=== PATIENT | male | born 1985 | race Caucasian/White ===

== ENCOUNTER 2016-07-17 14:10 | Inpatient (IN) | payer OTHER ==
[~2016-07-17] VITALS: Ht 167.6 cm; Wt 90.7 kg
[~2016-07-17 14:10] MED LIST: PRILOSEC 20MG C20 MG PO
--- NOTE | 2016-07-17 14:22 | NUR ---
TRIAGE; PT TO ED WITH FATHER. HAS BEEN STATING HE WANTS TO KILL HIMSELF. FATHER STATES PT HAS MENTIONED IT EVERY ONCE IN AWHILE. HAS BEEN GOING THROUGH ALOT LATELY AND UNDER STRESS. IS HAVING ISSUES WITH AT HOME AND WAS ARRESTED AND IN COURT YESTERDAY AND STARTED TO MENTION IT TO HIS FATHER. FEELS ANXIOUS AND DEPRESSED. DENIES ANY RECENT ETOH USE. DENIES ANY DRUG USE.
--- NOTE | 2016-07-17 14:37 | NUR ---
(1) one belongings bag locked in closet and (1) one valuables bag given to Pod 2 RN
--- NOTE | 2016-07-17 14:40 | NUR ---
PT BROUGHT IN FOR +SI COMMENT MADE TO FATHER YESTERDAY. PT REPORTS HE WAS ARRESTED THIS PAST WEEKEND AND MOVED. PT DENIES ETOH USE. PT ADMITS TO MARIJUANA USE. PT DENIES HI.
--- NOTE | 2016-07-17 14:45 | NUR ---
SURAJ WATTS AT BEDSIDE
--- NOTE | 2016-07-17 14:46 | ED PSYCHIATRIC COMPLAINT ---
History of Present Illness General Chief Complaint: Psychiatric Related Complaint Stated Complaint: +SI Source: patient Exam Limitations: no limitations Vital Signs & Intake/Output Vital Signs & Intake/Output Vital Signs Date Time Temp Pulse Resp B/P Pulse O2 O2 Flow FiO2 Ox Delivery Rate 07/17 1753 96.0 85 16 115/72 99 Room Air 07/17 1633 97.1 92 20 126/84 95 Room Air 07/17 1541 Room Air 07/17 1421 97.8 108 16 124/89 99 Room Air Allergies Coded Allergies: NO KNOWN ALLERGIES (06/05/15) Triage Note: TRIAGE; PT TO ED WITH FATHER. HAS BEEN STATING HE WANTS TO KILL HIMSELF. FATHER STATES PT HAS MENTIONED IT EVERY ONCE IN AWHILE. HAS BEEN GOING THROUGH ALOT LATELY AND UNDER STRESS. IS HAVING ISSUES WITH AT HOME AND WAS ARRESTED AND IN COURT YESTERDAY AND STARTED TO MENTION IT TO HIS FATHER. FEELS ANXIOUS AND DEPRESSED. DENIES ANY RECENT ETOH USE. DENIES ANY DRUG USE. Triage Nurses Notes Reviewed? yes Onset: Abrupt Duration: day(s):, constant, continues in ED Timing: recent history HPI: 30-year-old male comes into emergency room for further evaluation after making suicidal comments to father yesterday and thinking suicidal comments. He denies any alcohol use. He admits to smoking marijuana but denies any other illicit drug use. Patient reports she was living with his girlfriend and his 3 kids with and without movement with his other girlfriend. He reports that this causes some issues for him. He reports that he was arrested over the weekend. He denies owning any weapons. Patient has been feeling depressed. Denies any pain. Denies any other associated symptoms. (NATE BARRIGA) Reconcile Medications Pantoprazole Sodium 40 MG TABLET.DR 1 TAB PO DAILY GI (Reported) (TIFFANIE LOW,ARA) Past History Travel History Traveled to [place] past 21 day No Medical History Any Pertinent Medical History? see below for history Neurological: NONE EENT: NONE Cardiovascular: NONE Respiratory: NONE Gastrointestinal: GERD Hepatic: NONE Renal: nephrolithiasis, has had renal stones removed and a stent placed in the past which was removed later in [place] Musculoskeletal: NONE Psychiatric: opioid dependence, substance abuse Endocrine: NONE Blood Disorders: NONE Surgical History Surgical History: non-contributory Psychosocial History Who do you live with Other (see notes) What is your primary language Turkish Tobacco Use: Never used Family History Hx Contributory? No (NATE BARRIGA) Review of Systems Review of Systems Constitutional: Reports: no symptoms. EENTM: Reports: no symptoms. Respiratory: Reports: no symptoms. Cardiovascular: Reports: no symptoms. GI: Reports: no symptoms. Genitourinary: Reports: no symptoms. Musculoskeletal: Reports: no symptoms. Skin: Reports: no symptoms. Neurological/Psychological: Reports: see HPI. Hematologic/Endocrine: Reports: no symptoms. Immunologic/Allergic: Reports: no symptoms. All Other Systems: Reviewed and Negative (NATE BARRIGA) Physical Exam Physical Exam General Appearance: well developed/nourished, mild distress Head: atraumatic Eyes: Bilateral: normal appearance, EOMI. Ears, Nose, Throat: normal ENT inspection, hearing grossly normal Neck: normal inspection Respiratory: no respiratory distress Cardiovascular: regular rate/rhythm Extremities: normal range of motion Neurological/Psychiatric: awake, alert Appearance/Memory/Insight: appropriate appearance Behavoir/Eye Contact/Speech: cooperative Thoughts/Hallucinations: normal thought pattern Skin: intact, normal color, warm/dry SAD PERSONS SAD PERSONS Response Value Male Sex? yes 1 Depression/Hopelessness? yes 2 Single//? yes 1 Social Support? has support 0 Total 4 SAD PERSONS Done? yes (NATE BARRIGA) Progress Differential Diagnosis: dementia, drug intoxication, drug overdose, drug withdrawal, electrolyte abnormality, encephalitis, hypoglycemia, hypothyroidism, IC hem/mass/tumor, meningitis, depression, anxiety, bipolar Plan of Care: Orders Procedure Date/time Status Regular Diet 07/18 B Active Lab Add-on Test 07/17 1656 Active Patient Data - inpatient psych 07/17 1655 Active Admit to inpatient psych 07/17 1655 Active Continuous Observation Monitor 07/17 1528 Active ED CRISIS PSYCH CONSULT 07/17 1459 Active Intake & Output 07/17 1451 Active URINE DRUGS OF ABUSE 07/17 1446 Complete ETHANOL 07/17 1446 Complete COMPREHENSIVE METABOLIC PANEL 07/17 1446 Complete CBC WITHOUT DIFFERENTIAL 07/17 1446 Complete Vital Signs 07/17 UNK Active Nursing Misc 07/17 UNK Active Alternative Nursing Therapy 07/17 UNK Active Activity/Ambulation 07/17 UNK Active Current Medications Sig/Des Start time Last Medication Dose Stop Time Status Admin Omeprazole 40 MG DAILY AC 07/18 0700 AC (Prilosec) Acetaminophen 650 MG Q6P PRN 07/17 1699 AC (Tylenol) Al Hydroxide/Mg 30 ML Q4-6 PRN PRN 07/17 170 AC Hydroxide (Maalox Plus) Gabapentin 300 MG Q6P PRN 07/17 170 AC (Neurontin) Magnesium Hydroxide 30 ML AT BEDTIME PRN 07/17 1699 AC (Milk Of Magnesia) Trazodone HCl 50 MG AT BEDTIME NEED.. 07/17 1699 AC (Desyrel) Laboratory Tests 07/17/16 1515: Anion Gap 9, Estimated GFR > 60, BUN/Creatinine Ratio 11.3, Glucose 125 H, Calcium 10.3 H, Total Bilirubin 0.5, AST 39, ALT 68, Alkaline Phosphatase 72, Total Protein 6.9, Albumin 4.2, Globulin 2.7, Albumin/Globulin Ratio 1.6, CBC w Diff NO MAN DIFF REQ, RBC 5.88, MCV 88.6, MCH 30.3, RDW 13.2, MPV 9.1, Gran % 71.5, Lymphocytes % 21.0, Monocytes % 5.9, Eosinophils % 1.1, Basophils % 0.5, Absolute Granulocytes 8.4 H, Absolute Lymphocytes 2.5, Absolute Monocytes 0.7 H, Absolute Eosinophils 0.1, Absolute Basophils 0.1, PUBS MCHC 34.2, Serum Alcohol < 10.0 07/17/16 1455: Urine Opiates Screen < 100.00, Methadone Screen < 40, Barbiturate Screen < 60, Ur Phencyclidine Scrn < 6.00, Amphetamines Screen < 100, U Benzodiazepines Scrn < 85, Urine Cocaine Screen < 50, Urine Cannabis Screen > 80.00 H Departure Departure Disposition: STILL A PATIENT Condition: Stable Clinical Impression Primary Impression: Major depressive disorder, recurrent, unspecified Referrals: PATIENT HAS NO PRIMARY CARE DR (PCP/Family) Departure Forms: Customer Survey General Discharge Information Psych Admission Note Psychiatric Admission: I have seen and evaluated ALICIA SAMPSON. I have also reviewed all the pertinent lab results and diagnostic results. ALICIA SAMPSON will be admitted to our inpatient Psychiatric unit for treatment and care. (STEFANIE PA,NATE) PA/POWER PLANT ENGINEER Co-Sign Statement Statement: ED Attending supervision documentation- x I saw and evaluated the patient. I have also reviewed all the pertinent lab results and diagnostic results. I agree with the findings and the plan of care as documented in the PA's/POWER PLANT ENGINEER's documentation. [] I have reviewed the ED Record and agree with the PA's/POWER PLANT ENGINEER's documentation. [] Additions or exceptions (if any) to the PAs/POWER PLANT ENGINEER's note and plan are summarized below: [] (TIFFANIE LOW,ARA)
--- NOTE | 2016-07-17 15:19 | NUR ---
LABS SENT (BLUE,SST,LAV,[facility])
--- NOTE | 2016-07-17 15:28 | NUR ---
URINE TRIO SENT TO LAB
[2016-07-17 15:48] LABS: ABSOLUTE BASOPHIL COUNT 0.1 /CUMM (0.0-0.2); ABSOLUTE EOSINOPHIL COUNT 0.1 /CUMM (0.0-0.7); ABSOLUTE GRANULOCYTE CT 8.4 /CUMM (1.4-6.5); ABSOLUTE LYMPH COUNT 2.5 /CUMM (1.2-3.4); ABSOLUTE MONOCYTE COUNT 0.7 /CUMM (0.10-0.60); BASOPHIL % 0.5 % (0.0-2.0); EOSINOPHIL % 1.1 % (0-5); GRANULOCYTE % 71.5 % (42.2-75.2); HEMATOCRIT 52.1 % (42-52); MEAN CORPUSCULAR HGB 30.3 PG (27.0-31.0); MEAN CORPUSCULAR HGB CONC 34.2 G/DL (33.0-37.0); MEAN CORPUSCULAR VOLUME 88.6 FL (80.0-94.0); MEAN PLATELET VOLUME 9.1 FL (7.4-10.4); PLATELET COUNT 207 /CUMM (130-400); RBC DISTRIBUTION WIDTH 13.2 % (11.5-14.5); RED BLOOD CELL CT 5.88 /CUMM (4.70-6.10); WHITE BLOOD CELL COUNT 11.7 /CUMM (4.8-10.8)
--- NOTE | 2016-07-17 16:38 | NUR ---
PT MEETING WITH CRISIS IN CONSULTATION ROOM
--- NOTE | 2016-07-17 16:54 | NUR ---
PT MEDICATED WITH ATIVAN 1MG PO FOR ANXIETY. CRISIS AT BEDSIDE
--- NOTE | 2016-07-17 17:31 | ED PSYCH CRISIS CONSULTATION ---
Crisis Consult Basic Assessment Date of Consult: 07/17/16 Responsible Person/Accompanied By: self/father Insurance Authorization: Insurance #1: Insurance name: AVERY DILLON Phone number: Policy number: [id number] Group number: Authorization number: ED Provider: Patient's ED Provider: NATE BARRIGA Primary Care Physician: Patient's PCP: PATIENT HAS NO PRIMARY CARE DR PCP's Phone Number: Current Psychiatrist: none Chief Complaint: Psychiatric Related Complaint Patient's Quote: i'm having a really long week. i don't care anymore. Present Illness: Pt is a 30 yo male presenting to [place] ED this afternoon with reports of suicidal ideation. Pt is accompanied by his father who reports that pt has made suicidal statements past two days since arraignment in court yesterday. Pt released yesterday on a $10,000 pierre for threats made to kill his girl friend ( mother of his children). Pt reports they have had conflicts recently due to his sobriety and his report that he his trying to keep drug use out of their home. he reports concern that they're children are being exposed to drug use and drugs being left around the house. He reports recently notifying DCF and they currently have a DCF Worker. Pt had a [facility] admission in May 2015 due to depression and opiate dependence. he followed up with [facility] but discharged in June 2015 due to relapse. he reports involvement with [facility] and was able to discontinue off methadone 2 months ago. Pt has previously been prescribed wellbutrin, gabapentin and trazadone but on no current medications. He reports only using cannabis (daily) which he reports helps decrease his anxiety. He denies alcohol use. Pt reports SI with no plan stating "Maybe i'm suicidal...i don't care anymore". he reports not sleeping with no appetite. Increased anxiety and panic attacks. he reports his "heart hurts'. Pt presents as lethargic though generally agreeable and cooperative. He is oriented X3. If recommended pt would be a voluntary admission. Patient's Address: [address] [place] [address] Other Phone Number: Who Do You Live With? Other (see notes) (3 children and children mother) Family/Informants Interviewed: Pt mother yanni marx provided collateral . she reports pt has been stating "I'm going to kill myself" also threatened to kill gf on saturday. She reports grave concern about his safety. Allergies - Coded Allergies: NO KNOWN ALLERGIES (06/05/15) Current Medications - Scheduled Medications Omeprazole (Prilosec) 20 MG CAP 1 CAP PO DAILY GI (Reported) Entered as Reported by RICKY MATHEW on 06/06/15 1055 Laboratory Results: Laboratory Tests 07/17/16 1515: Anion Gap 9, Estimated GFR > 60, BUN/Creatinine Ratio 11.3, Glucose 125 H, Calcium 10.3 H, Total Bilirubin 0.5, AST 39, ALT 68, Alkaline Phosphatase 72, Total Protein 6.9, Albumin 4.2, Globulin 2.7, Albumin/Globulin Ratio 1.6, CBC w Diff NO MAN DIFF REQ, RBC 5.88, MCV 88.6, MCH 30.3, RDW 13.2, MPV 9.1, Gran % 71.5, Lymphocytes % 21.0, Monocytes % 5.9, Eosinophils % 1.1, Basophils % 0.5, Absolute Granulocytes 8.4 H, Absolute Lymphocytes 2.5, Absolute Monocytes 0.7 H, Absolute Eosinophils 0.1, Absolute Basophils 0.1, PUBS MCHC 34.2, Serum Alcohol < 10.0 07/17/16 1455: Urine Opiates Screen < 100.00, Methadone Screen < 40, Barbiturate Screen < 60, Ur Phencyclidine Scrn < 6.00, Amphetamines Screen < 100, U Benzodiazepines Scrn < 85, Urine Cocaine Screen < 50, Urine Cannabis Screen > 80.00 H Past History Past Medical History Neurological: NONE EENT: NONE Cardiovascular: NONE Respiratory: NONE Gastrointestinal: GERD Hepatic: NONE Renal: nephrolithiasis, has had renal stones removed and a stent placed in the past which was removed later in [place] Musculoskeletal: NONE Psychiatric: opioid dependence, substance abuse Endocrine: NONE Blood Disorders: NONE Past Surgical History Surgical History: non-contributory Psychosocial History Strengths/Capabilities: 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 Physical Limitations (Interventions): none known Psychiatric Treatment History Psych Treatment Psychiatric Treatment Yes Inpatient Treatment Yes Outpatient Treatment Yes Location of Treatment [facility] and [facility] Reason for Treatment opiate dependence depression Dates of Treatment May -june 2015 Response to Treatment detox of opiates. no recent use. Diagnosis by History: opiate dependence depression Substance Use/Abuse History Drug Use/Abuse 1 Substances Used/Abused Yes Substance Used/Abused Non-Prescribed Opiates Last Used 2016 How much used/taken percocet 30s Drug Use/Abuse 2 Substances Used/Abused Yes Substance Used/Abused Marijuana Last Used today How often daily Substance Abuse Treatment Substance Abuse Treatment Past Substance Abuse TX Yes Inpatient Treatment Yes Outpatient Treatment Yes Location of Treatment [facility]; [facility] and [facility] Reason for Treatment opiate dependence Dates of Treatment 2015 Response to Treatment detox of opiates and stopped methadone 2 months ago. Comments: pt reports being opiate free since stopping methadone tx 2 months ago. Pt reports daily cannabis use helps with anxiety. Current Mental Status Mental Status Orientation: Person, Place, Situation Affect: Depressed Speech: WNL Neuro-vegetative: Anhedonia, Appetite Decreased, Energy Decreased, Helpless, Loss of Interest, Sleep Disturbance Appearance Appearance- Dress/Hygiene: hospital scrubs, appears lethargic; generally cooperative Behaviors Thought Process: WNL Thought Content: WNL Memory: WNL Insight: Fair SI/HI Risk Assessment Past Suicidal Ideation/Attempts Yes Current Suicidal Ideation/Att Yes Past Homicidal Ideation/Att: Yes Current Homicidal Ideation/Attempts No Degree of Intent: Thoughts/No Intent Danger To: Others, Self Gravely Disabled: Poor Impulse Control, Poor Judgment Risk Factors: high anxiety/distress, SA/MH hospitalized, substance abuse, poor impulse control, lack of outcome concern, male Lethality Ratin PTSD Checklist PTSD Done? patient declined ED Management Sitter: Yes Restraints: No DSM5/PS Stressors/Medical Prob Diagnosis' (DSM 5, Stressors, Medical): Unspecified depressive D/O opiod Use disorder in early remission conflict with primary support group Current GAF: 25 Comments: pt reports recent crisis/conflict due to his concern that his gf (mother of his children) is allowing drug and alcohol use to take place in the home and in front of their children. Departure Disposition Psych Medical Clearance Date: 07/17/16 Medically Cleared at: 1600 Time Started: 1605 Time Ended: 1645 Psychiatrist Consulted: Adam Coleman MD Date Disposition Established: 07/17/16 Time Disposition Established: 165 Plan for Disposition - Modality: Inpatient Psychiatry Facility: [facility] Rationale for Disposition: Pt reports SI with no plan. Pt also recent threat to kill GF. Pt arrested over weekend for threatening gf. Pt reports not caring anymore. Mother reports pt stating i will kill myself. Type of IP Admission: Voluntary Referrals PATIENT HAS NO PRIMARY CARE DR (PCP/Family)
[2016-07-17] MEDS ORDERED: PANTOPRAZOLE SO40 M1 PO (17:33)
--- NOTE | 2016-07-17 17:54 | NUR ---
PT REPORTS FEELING LESS ANXIOUS AFTER TAKING ATIVAN.
--- NOTE | 2016-07-17 17:59 | IP CRISIS DIAG ASSESS PSYCH ---
Diagnostic Assessment Basic Assessment Insurance Authorization: Insurance #1: Insurance name: AVERY DILLON Phone number: Policy number: [id number] Group number: Authorization number: [id number] Primary Care Physician: Patient's PCP: PATIENT HAS NO PRIMARY CARE DR PCP's Phone Number: Patient's Quote: i'm having a really long week. i don'tcare anymore. Present Illness: Pt is a 30 yo male presenting to [place] ED this afternoon with reports of suicidal ideation. Pt is accompanied by his father who reports that pt has made suicidal statements past two days since arraignment in court yesterday. Pt released yesterday on a $10,000 pierre for threats made to kill his girl friend ( mother of his children). Pt reports they have had conflicts recently due to his sobriety and his report that he his trying to keep drug use out of their home. he reports concern that they're children are being exposed to drug use and drugs being left around the house. He reports recently notifying DCF and they currently have a DCF Worker. Pt had a [facility] admission in May 2015 due to depression and opiate dependence. he followed up with [facility] but discharged in June 2015 due to relapse. he reports involvement with [facility] and was able to discontinue off methadone 2 months ago. Pt has previously been prescribed wellbutrin, gabapentin and trazadone but on no current medications. He reports only using cannabis (daily) which he reports helps decrease his anxiety. He denies alcohol use. Pt reports SI with no plan stating "Maybe i'm suicidal...i don't care anymore". he reports not sleeping with no appetite. Increased anxiety and panic attacks. he reports his "heart hurts'. Pt presents as lethargic though generally agreeable and cooperative. He is oriented X3. If recommended pt would be a voluntary admission. Patient's Address: [address] [place] [address] Other Phone Number: Who Do You Live With? Other (see notes) (3 children and children mother) Feel Safe Where You Live? Yes Feel Safe in Your Relationship Yes Marital Status: single Do You Have Children? Yes Ages? 7 twins, 10 Primary Language? Turkmen Language(s) Spoken At Home: Turkmen Family/Informants Interviewed: Pt mother yanni marx provided collateral . she reports pt has been stating "I'm going to kill myself" also threatened to kill gf on saturday. She reports grave concern about his safety. Allergies - Coded Allergies: NO KNOWN ALLERGIES (06/05/15) Current Medications - Scheduled Medications Pantoprazole Sodium 40 MG TABLET.DR Parmar TAB PO DAILY GI #90 (Reported) Entered as Reported by JOSEP CALDWELL on 07/17/16 8484 Consequences of Psych Med Use: previously on wellbutrin; gabapentin and trazadone. no current medications. Lab Results: Laboratory Tests 07/17/16 1515: Anion Gap 9, Estimated GFR > 60, BUN/Creatinine Ratio 11.3, Glucose 125 H, Calcium 10.3 H, Total Bilirubin 0.5, AST 39, ALT 68, Alkaline Phosphatase 72, Total Protein 6.9, Albumin 4.2, Globulin 2.7, Albumin/Globulin Ratio 1.6, CBC w Diff NO MAN DIFF REQ, RBC 5.88, MCV 88.6, MCH 30.3, RDW 13.2, MPV 9.1, Gran % 71.5, Lymphocytes % 21.0, Monocytes % 5.9, Eosinophils % 1.1, Basophils % 0.5, Absolute Granulocytes 8.4 H, Absolute Lymphocytes 2.5, Absolute Monocytes 0.7 H, Absolute Eosinophils 0.1, Absolute Basophils 0.1, PUBS MCHC 34.2, Serum Alcohol < 10.0 07/17/16 1455: Urine Opiates Screen < 100.00, Methadone Screen < 40, Barbiturate Screen < 60, Ur Phencyclidine Scrn < 6.00, Amphetamines Screen < 100, U Benzodiazepines Scrn < 85, Urine Cocaine Screen < 50, Urine Cannabis Screen > 80.00 H Toxicology Screen Completed? Yes Results: positive Symptoms of Use: reports daily cannabis use. reports no opiates past few months. 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 Physical Limitations (Interventions): none known Psychiatric Treatment History Psych Treatment Psychiatric Treatment Yes Inpatient Treatment Yes Outpatient Treatment Yes Location of Treatment [facility] and [facility] Reason for Treatment opiate dependence depression Dates of Treatment May -june 2015 Response to Treatment detox of opiates. no recent use. Diagnosis by History: opiate dependence depression Risk Factors: high anxiety/distress, SA/MH hospitalized, substance abuse, poor impulse control, lack of outcome concern, male Substance Use/Abuse History Drug Use/Abuse minimum 12mo Hx Substances Used/Abused Yes Substance Used/Abused Marijuana Last Used today How much used/taken percocet 30s How often daily Substance Abuse Treatment Substance Abuse Treatment Past Substance Abuse TX Yes Inpatient Treatment Yes Outpatient Treatment Yes Location of Treatment [facility] Reason for Treatment opiate dependence Dates of Treatment 2016 Response to Treatment detox of opiates and stopped methadone 2 months ago. Sexual History Sexual Concerns: none reported Education History Highest Level of Education: some college Preferred Learning Style: visual, auditory, experiential Current Mental Status Mental Status Orientation: Person, Place, Situation Affect: Depressed Speech: WNL Neuro-vegetative: Anhedonia, Appetite Decreased, Energy Decreased, Helpless, Loss of Interest, Sleep Disturbance Appearance Appearance- Dress/Hygiene: hospital scrubs, appears lethargic; generally cooperative Behaviors Thought Process: WNL Thought Content: WNL Memory: WNL Insight: Fair SI/HI Risk Assessment - Minimum 6mo History- Past Suicidal Ideation/Attempts Yes Current Suicidal Ideation/Att Yes Past Homicidal Ideation/Att: Yes Current Homicidal Ideation/Attempts No Degree of Intent: Thoughts/No Intent Danger To: Others, Self Gravely Disabled: Poor Impulse Control, Poor Judgment Risk Factors: high anxiety/distress, SA/MH hospitalized, substance abuse, poor impulse control, lack of outcome concern, male Lethality Ratin Needs/Init TX Plan/Goals: Psychiatric evaluation medication assessment individual, family and group tx coordinated discharge planning AUDIT-C Questionnaire: AUDIT-C Questionnaire: Response Value ETOH use in the past year Never 0 # drinks typical/day Doesn't Drink 0 6 or > drinks per occasion Never 0 Total 0 DSM5/PS Stressors/Medical Prob Diagnosis' (DSM 5, Stressors, Medical): Unspecified depressive D/O opiod Use disorder in early remission conflict with primary support group Current GAF: 25 Comments: pt reports recent crisis/conflict due to his concern that his gf (mother of his children) is allowing drug and alcohol use to take place in the home and in front of their children.
[2016-07-17 19:16] VITALS: BP 148/73
--- NOTE | 2016-07-17 22:52 | NUR ---
Patient admitted to [facility] from ED. Patient is alert and oriented to person, time, place and situation. Patient was very sleepy during assessment and needed to be roused quite frequently in order to complet. Patient was compliant, inbetween periods of sleep. Denies HI/SI. Denies AH/VH. Patietn skin clean dry and intact. Patient reports not taking any medications. Patient is calm and cooperative. Patient family members have "pill problem". PAtient GF has a restraining order out on him and DCF is involved in patients life because of children. Looking forward to assisting Emigdio with mental health.
--- NOTE | 2016-07-18 06:21 | NUR ---
PT IS A VOLUNTARY ADMIT. HERE FOR SOCIAL STRESSORS. PT HAS A RESTRAINING ORDER FROM CHILDREN'S MOM.
[2016-07-18 07:53] VITALS: BP 151/77
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
--- NOTE | 2016-07-18 10:41 | SOCIAL WORKER PROG NOTE PSYCH ---
Social Work Progress Note Progress Note Met with Emigdio today to complete social history, he stated he is feeling depressed has SI, feels safe on the unit. He stated he is upset about everything - the drugs in my home with his 'baby's Mom and his sister using, and losing his girlfriend of 5yrs, court issues. He has been living with his children's Mother in [place] for the past 12yrs. Emigdio stated his children's Mother made up allegations that he threatened to kill her. He stated "she was mad because I left her for my girlfriend." Emigdio has 3 children - 10yo son and 7yo twin girls - he stated he called DCF after he left the home due to his children's Mother and his 30yo sister using Benzos (Xanex, Klonopin, Adderall) in front of his children. He stated they had drug issues for years. He stated he was afraid his children would take the pills as they were left all over the house. Emigdio stated he has been clean off Percocets for the past year, he was vague about attending - stated "I go whenever," he doesn't have a sponsor. He has been smoking Cannibis "a little the past couple days", denied regular use - was guarded about this. He stated he used Extacy a couple weeks ago. He was arrested in [place] for possession of Exctacy, and arrest in [place] for threatening to kill his remingtondren's Mother. He denied thathe threatened her. 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 Hd 3-4jobs in the past 5yrs. He stated he has no supports, seems pritesh with his Mother for telling his girlfriend about issuesgoing on, "now I will never see my girlfriend again." He reports his sibling Darian 28yo is sober - only one he will talk to . He stated his Mother and other siblings "are all drug addicts." He has a 30yo sister, and 34yo brother. He has been talking to his Father a little buit stated he is a drug addict too.
--- NOTE | 2016-07-18 13:18 | NUR ---
PT IS ISOALTIVE IN ROOM FOR MOST OF SHIFT. PT IS COMMING OUT WHEN STAFF ASKS AT TIMES. PT DID NOT GET UP FOR 1200 VITALS OR LUNCH. PT IS WITHDRAWN FROM STAFF AND PEERS. PT MOOD IS STABLE WITH A FLAT AFFECT. PT DENIES SI TOUGHTS.
--- NOTE | 2016-07-18 14:10 | History & Physical ---
General Information and HPI MD Statement: I have seen and personally examined ALICIA SAMPSON and documented this H&P. The patient is a 30 year old M who presented with a patient stated chief complaint of "I'm having really long week. I don't care anymore"]. Source of Information: patient Exam Limitations: no limitations History of Present Illness: 30-year-old white male into the emergency room with his father stating he wants to kill himself, under a lot of stress and problems at home and feels very anxious and depressed. Denies any alcohol intake patient is admitted for evaluation and treatment Allergies/Medications Allergies: Coded Allergies: NO KNOWN ALLERGIES (06/05/15) Home Med list Pantoprazole Sodium 40 MG TABLET. 1 TAB PO DAILY GI (Reported) Compliance With Home Meds: UNKNOWN Past History Travel History Traveled to [facility] past 21 day No Medical History Neurological: NONE EENT: NONE Cardiovascular: NONE Respiratory: NONE Gastrointestinal: GERD Hepatic: NONE Renal: nephrolithiasis, has had renal stones removed and a stent placed in the past which was removed later in [place] Musculoskeletal: NONE Psychiatric: opioid dependence, substance abuse Endocrine: NONE Blood Disorders: NONE Surgical History Surgical History: non-contributory Past Family/Social History Employment History Employment Unemployed 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 Exam & Diagnostic Data Last 24 Hrs of Vital Signs/I&O Vital Signs Date Time Temp Pulse Resp B/P Pulse O2 O2 Flow FiO2 Ox Delivery Rate 07/18 0753 97.0 96 151/77 07/17 1916 98.6 98 148/73 07/17 1753 96.0 85 16 115/72 99 Room Air 07/17 1633 97.1 92 20 126/84 95 Room Air 07/17 1541 Room Air 07/17 1421 97.8 108 16 124/89 99 Room Air Intake & Output 07/18 1600 04/ 0800 04/05 0000 Intake Total Output Total Balance Patient 200 lb Weight Physical Exam General Appearance Alert, Oriented X3, Cooperative, No Acute Distress Skin No Rashes, No Breakdown, No Significant Lesion HEENT Atraumatic, PERRLA, EOMI, Mucous Membr. moist/pink Neck Supple, No JVD, No thryomegaly, +2 Carotid Pulse wo Bruit Lymphatic Axillary nl, Cervical nl Cardiovascular Regular Rate, No Murmurs Lungs Clear to Auscultation, Normal Air Movement Abdomen Normal Bowel Sounds, Soft, No Tenderness, No Hepatospenomegaly, No Masses Neurological Exam Findings: Normal Gait, Normal Speech, Strength at 5/5 X4 Ext, Normal Tone, Sensation Intact, Cranial Nerves 3-12 NL, Reflexes 2+ Cranial Nerves II through XII: Intact Extremities No Cyanosis, No Edema, Normal Pulses Last 24 Hrs of Labs/Gabino: Laboratory Tests 07/17/16 1515: Anion Gap 9, Estimated GFR > 60, BUN/Creatinine Ratio 11.3, Glucose 125 H, Calcium 10.3 H, Total Bilirubin 0.5, AST 39, ALT 68, Alkaline Phosphatase 72, Total Protein 6.9, Albumin 4.2, Globulin 2.7, Albumin/Globulin Ratio 1.6, TSH & T3 &Free T4 Intrp 1.360, CBC w Diff NO MAN DIFF REQ, RBC 5.88, MCV 88.6, MCH 30.3, RDW 13.2, MPV 9.1, Gran % 71.5, Lymphocytes % 21.0, Monocytes % 5.9, Eosinophils % 1.1, Basophils % 0.5, Absolute Granulocytes 8.4 H, Absolute Lymphocytes 2.5, Absolute Monocytes 0.7 H, Absolute Eosinophils 0.1, Absolute Basophils 0.1, PUBS MCHC 34.2, Serum Alcohol < 10.0 07/17/16 1455: Urine Opiates Screen < 100.00, Methadone Screen < 40, Barbiturate Screen < 60, Ur Phencyclidine Scrn < 6.00, Amphetamines Screen < 100, U Benzodiazepines Scrn < 85, Urine Cocaine Screen < 50, Urine Cannabis Screen > 80.00 H Assessment/Plan As Ranked By This Provider Problem List: 1. Major depressive disorder, recurrent, unspecified 2. Depression with suicidal ideation Miscellaneous Miscellaneous Documentation Attending Case Discussed With: VALORIE LOW,NOLBERTO Ward Primary Care Physician: PATIENT HAS NO PRIMARY CARE DR Patient sees these Specialists Psychiatry Level of Patient Care: [facility] Consults Needed: Consulting Specialty: Psychiatry Consulting Physician: Dr. Torres Reason for Consult: depression and suicidal ideations
--- NOTE | 2016-07-18 15:24 | CPS MD/APRN INITIAL ASSE PSYCH ---
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 Patient had been in above relationship for 11 years but also has had a girlfriend in [facility], for the past 5 years. Chief Complaint: "I'm having a really long week. I just don't care anymore." Reaction to Hospitalization: looking for help History of Present Illness Onset of Illness: In the context of conflict in relationships with the mother of his 3 children and his 24-year-old girlfriend from [facility], patient was charged by the former with threatening her and is now barred from her presence by an Order of Restraint, spent this past weekend in [place] intermediate and had been released from court on $10,000.00 pierre the day prior to his E.D. presentation. In the context of the above, patient told his father he was feeling suicidal. Circumstances Leading to Admission: (see above under Onset of Illness) Problem(s) Justifying Need for Admission: --claimed to be suicidal Other HPI: Patient had been admitted to [facility], 06/06-06/09/2015 (see the discharge summary , admission assessments and progress notes from that earlier admission in the electronic medical record), seeking treatment for opioid use disorder (oral opiates-- Percocet); he was detox'd and referred to [place] [facility]; he failed at IOP, relapsed within less than a month (possibly within days of discharge) and was thrown out of program, but found his way to [facility] methadone maintenance; he tapered completely off methadone about two months ago. Despite the latter, patient asserts he has continued to be opioid-free but recently used Ecstasy and Marijuana. Past Psychiatric History Past Diagnosis(es)- if any: (diagnoses at time of his discharge from [facility] on 06/09/2015): Unspecified Depressive Disorder Opioid Use Disorder, severe Past Precipitating Factors- if any: --relapse of polydrug abuse/use disorders --relationship problems - Include inpatient and outpatient treatment Treatment History: other treatment history denied History of Suicide Attempts or Gestures denied Substance Abuse History: has abused oral opiates heavily in the past, as well as occasionally using alcohol, benzodiazepines, Ecstasy, Marijuana and others Allergies: Coded Allergies: NO KNOWN ALLERGIES (06/05/15) Home Med List: listed: pantoprazole, 40mg daily (for GERD) - Include any medical condition(s) that may - impact the patient's recovery/remission Past History Medical History Neurological: NONE EENT: NONE Cardiovascular: NONE Respiratory: NONE Gastrointestinal: GERD Hepatic: NONE Renal: nephrolithiasis, has had renal stones removed and a stent placed in the past which was removed later in [place] Musculoskeletal: NONE Psychiatric: depression, opioid dependence, substance abuse Endocrine: NONE Blood Disorders: NONE Cancer(s): NONE 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 Isolation History: Standard Surgical History Surgical History: none Psychiatric Family/Social Hx Family History Psychiatric Illness: not known Substance Use: father, mother, sister and one brother with history substance use disorders Suicides: not known Other Family History: noncontributory at this time Social History Living Situation: (see above under Identifying Information) Significant Relationships (family/friends): --only close relative is brother Darian (the only family member who does not use drugs/alcohol) --girlfriend of 11 years with whom he has 3 kids --younger girlfriend of 5 years Education: some college Vocation/Occupation: 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 - #1 Recognizing dangerous situations. - #2 Coping Skills. - #3 Basic information about quitting. Status of Tobacco Cessation Counseling: #1, #2 AND #3 Completed Cessation Med Status: Nicotine Patch Ordered (21mg nicotine patch) Alcohol Screening - ETOH screen POS if BAL >=80 or Audit-C>= M4/F3 Audit-C Score from Diag Assess: 0 Blood Alcohol Level: Laboratory Tests 07/17 1515 Toxicology Serum Alcohol (<10 MG/DL) < 10.0 Alcohol Use Screening Results: Neg per Audit C &/or BAL - If ETOH counseling indicated - the following topics are required. - #1 Express concern about the patient's - drinking at unhealthy levels, include informing - of national norms for moderate drinking: - men <= 14 drinks/week, max 4 drinks/occasion - women <= 7 drinks/week, max 3 drinks/occasion - #2 Providing feedback, including linking alcohol to - negative physical effects (liver injury, hypertension) - negative emotional effects (relationship problems and - depression) - negative occupational consequences (reduced work - performance) - #3 Advising the patient to abstain from alcohol or - to drink below national norms for moderate drinking - (as listed above). Status of ETOH Use Counseling: N/A B/C NO ETOH Use Metabolic Screening - Screen if on a Neuroleptic Medication - Metabolic screening should include: - Blood Pressure, BMI, Glucose or Hgb A1c, & a - Lipid profile from within the past 365 days. Metabolic Screening ([X]) Not Applicable, patient not on a neuroleptic. OR () Patient on a neuroleptic(s) . Enter below results for Glucose or Hemoglobin A1C, and lipid panel if obtained during the last 365 days. BMI: 32.200 Blood Pressure: 150/82 Laboratory Results (If applicable): Exam and Plan Mental Status Examination Ambulation Status: without assistance Appearance: unremarkable Attitude towards examiner: positive Psychomotor activity: normal Behavior: appropriate Quality of speech: normal Affect: mildly tense, constricted Mood: dysphoric, overwhelmed Suicidal Ideation: denied at present Homicidal Ideation: denied, now or prior to admission Hallucinations: denied Paranoid/Delusional Material: not noted Difficulties with thought organization: mildly scattered Insight: poor Judgment: fair to poor Orientation: full Cognition: intact Memory Function: mildly impaired, possibly contributed to by anxiety Estimate of intellectual functioning: average Assets/Strengths Patient Identified Assets/Strengths: --loves and cares about the welfare and safety of his 3 minor children --able to abstain from opioid drugs for a full year --has a clean, sober and caring brother (Darian) Impression/Plan Impression and Plan: Patient appears to be embroiled in a volitile "love triangle" and is currently being rejected by both girlfirends, one who won't speak with him and the other who has taken out an Order of Restraint against him; he would like to have a meeting with girlfriend from [place] before discharge and to patch things up with her, if possible; despite the Order of Restraint which apparently bars him from his children patient seems most distraught over not being able to communicate with the out-of-town girlfriend (not the mother of his children). - Include all active medical diagnosis that require tx DSM 5 Diagnosis(es): Adjustment Disorder with Depressed Mood R/O Unspecified Depression Opioid Use Disorder, in recent/early recovery Cannabis Use Disorder Cannabis Intoxication - Initial Tx Plan for Active Psych & Medical Conditions Treatment Plan: --we will attempt to set up a couple's meeting with patient and girlfriend from [place] prior to his discharge later this week --we will monitor patient for depressive symptoms --we will attempt to engage patient in outpatient counseling, group or individual and/or couple's --we will encourage patient's participation in AA/NA - Factors that would help patient function - in a less restrictive setting. Factors: --ability to contact girlfriend from [place] and arrange a timely couple's meeting --our ability to rapidly arrange appropriate aftercare
[2016-07-18 15:52] VITALS: BP 150/82
--- NOTE | 2016-07-18 20:35 | NUR ---
PT IS ISOLATIVE AND WITHDRAWN, STAYING IN PT ROOM MOSTOF THE EVENING. WHEN APPEARING IN [place] PT LIMITS INETRACTION WITH OTHERS. MOOD IS STABLE, AFFECT APPEARS EUTHYMIC, COMMUNICATION IS ORGANIZED AND APPEARS NORMAL IN ALL REPECTS, AND APPETITE IS NORMAL. PT DENIES SI AT THIS TIME.
--- NOTE | 2016-07-19 06:33 | NUR ---
PT IRRITABLE. 3 DAY LETTER SUBMITTED 07/18 AT 7683. PT RECEIVED TRAZADONE 50 PRN.
[2016-07-19 08:32] VITALS: BP 148/87
[2016-07-19 12:30] VITALS: BP 140/69
--- NOTE | 2016-07-19 13:07 | NUR ---
PT HAS BEEN ISOALTIVE IN ROOM FOR MOST OF SHIFT. PT HAS NOT BEEN ATTENDING GROUPS. PT HAS TO BE ASKED A FEW TIME TO GET OUT OF BED FOR VITALS AND MEALS. PT MOOD IS STABLE WITH A COSNTRICTED AFFECT. PT WANTS TO LEAVE AND SPEAK TO THE DR ABOUT DISCHARGE TODAY. PT DENIES SI THOUGHTS
--- NOTE | 2016-07-19 14:37 | SOCIAL WORKER PROG NOTE PSYCH ---
Social Work Progress Note Progress Note Received a note on my desk that Emigdio needed to speak with me jazz because he has court tomorrow. Emigdio was in bed and has been there all day. I asked him what was going on and he informed me that he needs to leave today, because he has court tomorrow and Saturday and he needs to be there. He then went on to say that he was not suicidal and that he just said that to get in, because his parents told him to. I asked where he would be staying if he were to leave the hospital? He said his parents house. He stated both parents are drug addicts, but he can stay there for a couple days while he tries to work things out with his girlfriend in [place]. He and I tried calling his Father together, but there was no answer. He then called his Mom. I asked if she was in agreement for Emigdio to come to her house if he were to discharge today? She said no and that who is presenting right now is not her son. She went on to share her concerns about how he has been frightening her, he is aggressive, she steals money from her. She then stated he has mental health issues going on as he doesn't take care of his hygiene and he lays in bed all day. She expressed concern that he would hurt himself or hurt Almita. She feels he needs to be here. Emigdio was argumentative stating that she was a drug addict and that the whole family was using drugs. She stated that his Father was having a serious drug problem, but went on to say that she is an alcohol/ drug counselor and was not using drugs. The conversation was not supportive as both were defensive and argumentative, so I ended the conversation. Emigdio went on to say that his whole family is making up things, because they are angry over him calling DCF and not putting up with what has been happening at the house. He repeatedly stated he is heart broken and doesn't need to be in the hospital because of that. I told him that I would need to speak with the team further. I later approached him and encouraged him to reach out to his girlfriend in [place] to see if things could be worked out for him to stay with her. I helped him get some phone numbers from on the computer and then he called Toyin. He was on the phone with her for quite some time. He looked upset as I checked on him periodically. It didn't appear that the conversation was going well. He asked her directly if she would pick him up today or tomorrow and I believe she said no.
[2016-07-19 16:18] VITALS: BP 155/76
--- NOTE | 2016-07-19 17:03 | SOCIAL WORKER TX PLAN PSYCH ---
Treatment Plan - Please Document: - Evidence that there is ongoing collaboration between - the patient and the interdisciplinary team, - including the patient's active participation and - responsibility for engaging in the treatment regimen, - and that the treatment plan is individualized and - relevant to the patient's conditions. - Treatment plan should reflect documentation indicating - that all active therapeutic efforts are included. Strengths/Capabilities: wants help with derpession, came here for help. Physical Limitations (Interventions): none known Patient Identified Trmt Goals: "I want to leave the hospital" Discharge Plan: Identify a safe place to reside and refer to [facility] Problem/Goals #1 Problem #1: suicidal ideation Goal (Short Term): Patient will get up and participate in 3 groups per day. Goal (Parts Cleaner): Patient will no longer have thoughts to hurt himself Interventions: patient will be offered medication management with the psychiatrist, groups on coping skills, symptom management, relaxation, goals group, focus group, accupuncture. Post Closing Specialist will assess suicidality, encourage participation in treatment and coordinate with family. cut and cover line worker will assist with aftercare planning. Modalities: group/ individual DSM5/PS Stressors/Medical Prob Diagnosis' (DSM 5, Stressors, Medical): Unspecified depressive D/O opiod Use disorder in early remission conflict with primary support group Current GAF: 25 Treatment Team - Responsibilities of members of the treatment team include: - Medication Management- MD or PERMIT REVIEW ASSISTANT - Medication Administration and Monitoring- Nurse - Group Therapy- Occupational Therapist - 1:1 Therapy,Disch Planning,family involvement-Post Closing Specialist
--- NOTE | 2016-07-19 18:51 | CP SOUTH PROGRESS NOTE PSYCH ---
Psych (Inpt) Progress Note Progress Note Include the following elements, when applicable: Involvement in the active treatment of the patient with behavioral observations of the patient and the patient's response to the treatment. Review of the ongoing treatment process in the context of the treatment plan. Indication of how multi-disciplinary staff members are carrying out the treatment plan. Plans for future interventions and recommendations for revision of the treatment plan. Liaison with other physicians/providers. Progress Note: PSYCHIATRIST NOTE, 07/19/2016: I discussed this patient's progress to date, current mental status, treatment and discharge planning with staff team today in the daily morning ITTM and also met with him again myself in individual session. Patient was casual, comfortable and confident that "everything will work out." He told me that "until things settle down again" he planned to stay with a male friend and that he very much wished to discharge tomorrow, 07/20/2016. I told him we would need to be able to confirm that he had someone other than either of his girlfriends ( actually one has a restraining order filed against him at this time) or parents willing to take him in, and we needed to arrange aftercare for him, most likely in the [place] area, as that is where this friend lives. Patient is currently euthymic, showing no evidence of suicidal or homicidal ideation, plans , intent or impulses. Perhaps he is presenting as a little overconfident, but by his own account he has always been able to "charm the women...I'm a good lookin' joycelyn..." and talk his way out of difficulties.
--- NOTE | 2016-07-19 22:17 | NUR ---
PT IS ISOLATIVE IN ROOM MOST OF EVENING SHIFT. DID NOT ATTEND WRAP UP GROUP. PT CAN BE SHORT AND ABRUPT WITH RESPONSES, VERY VAGUE AND SLOW TO RESPOND. DOES NOT ENGAGE OFTEN. VS ARE STABLE AND DENIES ANY SI/HI TO THIS MHW.
[2016-07-20 08:40] VITALS: BP 145/89
[2016-07-20 12:22] VITALS: BP 144/69
[2016-07-20] MEDS ORDERED: NICOTINE PATCH1 EAC3 TOP (13:07)
--- NOTE | 2016-07-20 13:25 | CP SOUTH PROGRESS NOTE PSYCH ---
Psych (Inpt) Progress Note Progress Note Include the following elements, when applicable: Involvement in the active treatment of the patient with behavioral observations of the patient and the patient's response to the treatment. Review of the ongoing treatment process in the context of the treatment plan. Indication of how multi-disciplinary staff members are carrying out the treatment plan. Plans for future interventions and recommendations for revision of the treatment plan. Liaison with other physicians/providers. Progress Note: PSYCHIATRIST NOTE (DISCHARGE), 07/20/2016: I discussed this patient's progress to date, current mental status, treatment and discharge plans with staff team today in the daily morning ITTM and also met with him again myself in individual session prior to discharging him to outpatient treatment with [facility], where he has a walk-in interview between 8:30am-12:30pm on 07/24/2016; patient was also urged to regularly attend local AA/NA meetings and acquire a sponsor at his earliest opportunity. Though patient has a court date on 07/23/2016 (and others to follow ), he is confident in being able to work out a reasonable solution to the present situation; he acknowledged his own part/responsibility in his current estrangement from the mother of his 3 minor children and views improving their relationship as his primary concern. Patient is currently euthymic, bright in affect, positive about the future, showing no evidence of suicidal or homicidal ideation, plans, intent or impulses and knows well his own safety plan should he ever in future become concerned about being at risk to harm himself or others. Patient will be staying with friends, a couple in [place], [place].; Ariane Marsh LCSW, has confirmed today that patient is welcome to stay with them at this time. I once again spoke with patient about smoking cessation, urged him to quit now, both for his own sake and that of his children and recommended he continue to utilize the nicotine patch (using the 21mg patch here in hospital) to assist him with reducing cravings for tobacco/cigarettes; he was also given an appointment card for the next [facility] meeting on 08/01 at 4pm, facilitated by Jyoti Mo LCSW. Patient was discharged on no regular psychotropic medications but, as noted above, strongly urged to utilize the 21mg nicotine patch daily to reduce cravings (as it did while he was on [facility]); he knows that one should not smoke at the same time he/she is using the patch.
--- NOTE | 2016-07-20 13:25 | DISCHARGE SUMMARY REPORT-PSYCH ---
Visit Information Visit Dates/Diagnosis' Admission Date: 07/17/16 Discharge Date: 07/20/16 Reason for Admission: "I'm having a really long week. I just don't care anymore." Psy Discharge Primary Diag: Adjustment Disorder with mixed disturbance of emotions and conduct; non-suicidal Cannabis Use Disorder Cannabis Intoxication Hospital Course Significant Lab Findings: glucose = 125; Calcium = 10.3; DESYI = less than 10.0; urine for drugs of abuse-- positive for cannabis (greater than 80.00ng/ml); for further details of all normal range laboratory data from this admission, see the electronic medical record Course Complications: none Consultations: patient was seen for an admission medical H&P and followed medically throughout this admission by Neto Brady M.D. Allergies: Coded Allergies: NO KNOWN ALLERGIES (06/05/15) Hospital Course/TX Response: (see also all admission assessments, daily M.D., SAFETY SPEC and ENGINE REPAIR SUPERVISOR progress notes for this admission, all of which are available in the electronic medical record) From the outset, patient tended to blame just about everyone he knows or is related to for being addicted to one drug or another while minimizing his own substance abuse and arrests related to same; though he claimed to be off opioids his urine screen showed toxic concentraton of cannabis. Patient had not been receiving treatment for his substance use disorders and not attending AA/NA and did not have a sponsor. He generally kept a low profile over a brief admission, showed no evidence of clinical depression or formal thought disorder; he was not discharged on any regular psychotropic medications. Patient was eager for discharge, saying he had multiple court dates and did not want to be In Contempt. 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 At the time of discharge, patient showed no evidence of suicidal or homicidal ideation, plans, intent or impulses and was well aware of his safety plan should he ever in future feel himself a acute risk of harming himself or anyone else. Discharge HBIPS - Tobacco Use Treatment Offered Post DC Medications Offered: Script Given-See Med List Post DC Tobacco Treatment Plan: [facility] Appt Date: 08/01/16 - EtOH/Drug Use D/O Treatment Offered Post DC Medications Offered: NA-No EtOH/Drug Use D/O Post DC EtOH/SubAbuse TX Plan: NA-No EtOH/Drug Use D/O Metabolic Screening - Screen if on a Neuroleptic Medication - Metabolic screening should include: - Blood Pressure, BMI, Glucose or Hgb A1c, & a - Lipid profile from within the past 365 days. Metabolic Screening ([X]) Not Applicable, patient not on a neuroleptic. OR () Patient on a neuroleptic(s) . Enter below results for Glucose or Hemoglobin A1C, and lipid panel if obtained during the last 365 days. BMI: 32.200 Blood Pressure: 144/69 Laboratory Results (If applicable): Discharge Instructions General Discharge Information Discharge Medications: Discharge Medications (Ddose, route, frequency, indications): patient was discharged on no regular medications, including no psychotropics; however, he was recommended to utilize the 21mg nicotine patch OTC to help reduce cravings for cigarettes/tobacco and cautioned that he should not smoke while using the patch Multiple Neuroleptics: ([X]) Not Applicable OR Document below three failed attempts at monotherapy, or a plan to taper to monotherapy, or augmentation of Clozapine. () Patient's Diet: regular Patient's Activity: without restrictions DC Disposition: to stay with friends, a couple in [place], [place]. Recommendations: (see Hospital Course) Referred To: patient was referred directly to walk-in intake with [facility] [place] [facility], [facility], open 8:30am to 12:30pm; he was also urged to regularly attend local AA/NA meetings and communicate frequently with a sponsor; he was given an appointment card for the next [facility] scheduled for 08/01/2016 at for 4pm (facilitated by Jyoti Handley LCSW) and recommended to attend Copies To: NICO HANDLEY LCSW
--- NOTE | 2016-07-20 13:30 | SOCIAL WORKER PROG NOTE PSYCH ---
Social Work Progress Note Progress Note Emigdio was in bed this morning. I asked if he had a place to go today? He said that he can stay with his friend Ramesh Juarez in [place]. Emigdio and I called Ramesh together [phone]. Ramesh asked how Emigdio was and if he was legally responsible for Emigdio? I told him he was not legally responsible for his behaviors, but it was up to him if he felt comfortable with Emigdio returning to his home for a while. Asked if he had any safety concerns? He said no. He said that he works 50 hours a week, but his is home and would be here today when Emigdio arrived. Emigdio talked about preparing for court on Saturday and other things he wanted to do. He didn't feel that he needed to be sitting in the hospital and denies any SI. Ramesh also had indicated that Emigdio seemed pressured to say he was suicidal just to get into the hospital. Emigdio will take [employer] from the hospital. I told him that I was giving him a referral to [facility] in [place] and that their walk in evaluations were on Tuesdays from 8: 30-1:30pm. He was fine with that. Set up [employer] for a 2:30pm pick up worker.
--- NOTE | 2016-07-20 14:01 | NUR ---
will be discharged today to [facility] with follow up at [facility] in [place]. Mood is stable, full range of affect. denied thoughts of self harm when asked. given education on suicide prevention, depression and narcotic abuse.
== END 2016-07-20 14:17 | DRG 755 ==
LOC: ENRESERVDT → ENRESERVTM → ERH 14:10 → CP SOUTH 15:25 → ERHI 15:25 → ENPENDDIS 15:25 → CP SOUTH 19:04
PROVIDERS: Physician Assistant Medical; ADMIT Psychiatry & Neurology Psychiatry
DX: F43.25 Adjustment disorder with mixed disturbance of emotions and conduct (principal); F12.90 Cannabis use, unspecified, uncomplicated
CPT/HCPCS: 80307; G0480